=== PATIENT | female | born 1990 | race Asian ===

== ENCOUNTER 2017-07-14 10:48 | Emergency (ER) | payer MEDICAID ==
[~2017-07-14] VITALS: Ht 167.6 cm; Wt 64.0 kg
[2017-07-14 12:05] VITALS: BP 117/77
[2017-07-14] MEDS ORDERED: ACETAMINOPHEN 325MG TABLET PO ONE (12:15)
== END 2017-07-14 18:50 | disposition left against medical advice (07) ==
LOC: ER 13:23
DX: R50.9 Fever, unspecified (principal); R35.0 Frequency of micturition; N89.8 Other specified noninflammatory disorders of vagina; Z53.21 Procedure and treatment not carried out due to patient leaving prior to being seen by health care provider
CPT/HCPCS: 87491; 87591; 99281